=== PATIENT | female | born 1985 | race Hispanic/Latino ===

== ENCOUNTER 2022-02-08 06:19 | Day surgery (SDC) | payer OTHER ==
[~2022-02-08 06:19] MED LIST: LACTATED RINGERS 1,000 ML IV SCH; MIDAZOLAM 2 MG/2 ML INJ IV NR; SCOPOLAMINE TRANSDERMAL PATCH 72 HR TD NR
--- NOTE | 2022-02-08 07:37 | Anesthesia Consultation ---
Anesthesia Consult and Med Hx Date of service: 02/08/22 - Airway Anesthetic Teeth Evaluation: Poor (multiple chipped, missing teeth) ROM Head & Neck: Adequate Mental/Hyoid Distance: Adequate Mallampati Class: Class II Intubation Access Assessment: Probably Good - Pre-Operative Health Status ASA Pre-Surgery Classification: ASA3 Proposed Anesthetic Plan: General - Pulmonary Hx Asthma: Yes (daily inhaler and nubilizer) COPD: No Hx Pneumonia: Yes (2020) - Cardiovascular System Hx Hypertension: Yes (CONTROLLED WITH MEDICATION) - Central Nervous System Hx Seizures: Yes (LAST SEIZURE 2021) CVA: No (head trauma as child) Hx Back Pain: No (h/o broken bones from falls) Hx Psychiatric Problems: Yes (anxiety/depression) - Endocrine Hx Insulin Dependent Diabetes: Yes Hx Hyperthyroidism: Yes - Hematic Hx Sickle Cell Disease: No - Other Systems Hx Alcohol Use: No Hx Substance Use: No Hx Cancer: No Hx Obesity: Yes
--- NOTE | 2022-02-08 07:38 | Anesthesia Day of Surgery ---
Anesthesia Day of Surgery - Day of Surgery Patient Examined: Yes Patient H&P Reviewed: Yes Patient is NPO: Yes
[2022-02-08] MEDS ORDERED: HYDROmorphone 0.5 MG/0.5 ML INJ IV PRN (07:55)
[2022-02-08] MEDS ORDERED: ONDANSETRON 4 MG/2 ML INJ IV PRN ×2 (07:55→13:00)
[2022-02-08] MEDS ORDERED: HYDROcodone/ACETAMINOPHEN 5-325 MG TAB PO PRN ×2 (07:55→12:33)
[2022-02-08] MEDS ORDERED: FAMOTIDINE 20 MG/2 ML INJ IV NR (08:00)
[2022-02-08 08:47] LABS: Basophils % (Auto) 0.3 % (0.0-1.8); Eosinophils # (Auto) 0.1 K/mm3 (0.0-0.4); Eosinophils % (Auto) 0.9 % (0.0-4.3); Hematocrit 37.8 % (30.3-42.9); Hemoglobin 12.4 gm/dl (10.1-14.3); Lymphocytes # (Auto) 1.8 K/mm3 (1.2-5.4); Lymphocytes % (Auto) 14.3 % (13.4-35.0); Mean Corpuscular HGB Conc 33 % (30-34); Mean Corpuscular Volume 80 fl (79-97); Monocytes # (Auto) 0.4 K/mm3 (0.0-0.8); Monocytes % (Auto) 3.2 % (0.0-7.3); Platelet Count 315 K/mm3 (140-440); Red Blood Count 4.72 M/mm3 (3.65-5.03); Red Cell Distribution Width 14.5 % (13.2-15.2)
--- NOTE | 2022-02-08 09:10 | History and Physical Report ---
History of Present Illness Date of examination: 02/08/22 Date of admission: 02/08/2022 Chief complaint: History of abnormal uterine bleeding History of present illness: 36 yo female with a long-standing history of abnormal uterine bleeding requiring a blood transfusion in the past. Endometrial biospy was planned secondary to elevated risk factors for endometrial cancer however patient could not tolerate in office procedure. She continued to have AUB which did not resolve with medical management. Plans were therefore made for Hysteroscopy D&C. She was made aware of the risks and benefits of procedure and was in agreement with plan. Past History Past Medical History: asthma, hypertension, diabetes, seizure, high cholesterol Past Surgical History: D&C [employer] History: other (Abnormal uterine bleeding.) Family/Genetic History: none Social history: Medications and Allergies Allergies Allergy/AdvReac Type Severity Reaction Status Date / Time bee venom protein (honey bee) Allergy Swelling Verified 02/07/22 12:53 codeine Allergy Rash Verified 02/07/22 12:53 Penicillins Allergy Shortness Verified 02/07/22 12:53 of Breath HONEY Allergy Shortness Uncoded 02/07/22 12:51 of Breath NUTS Allergy Shortness Uncoded 02/07/22 12:53 of Breath Home Medications Medication Instructions Recorded Confirmed Last Taken Type ALBUTEROL NEB's [Proventil 0.083% 2.5 mg IH Q6H PRN 02/07/22 02/07/22 Unknown H istory NEBS] Albuterol Mdi (or & Nicu Only) 2 puff IH QID PRN 02/07/22 02/07/22 Unknown Hist ory [ProAir HFA Inhaler] Amlodipine Besylate [Norvasc] 10 mg PO QDAY 02/07/22 02/07/22 Unknown History Atorvastatin [Lipitor Tab] 80 mg PO QHS 02/07/22 02/07/22 Unknown History Insulin Degludec [Tresiba 20 unit SQ QPM 02/07/22 02/07/22 Unknown History Flextouch U-100] Levothyroxine Sodium [Euthyrox] 125 mcg PO QAM 02/07/22 02/07/22 Unknown History Metformin HCl [metFORMIN] 1,000 mg PO BID 02/07/22 02/07/22 Unknown History Phenytoin [Dilantin] 100 mg PO TID 02/07/22 02/07/22 Unknown History Active Meds: Active Medications Hydrocodone Bitart/Acetaminophen (Hydrocodone/Acetaminophen 5-325 Mg Tab) 2 each PO ONCE PRN PRN Reason: Pain, Moderate (4-6) Stop: 02/08/22 12:00 Famotidine (Famotidine 20 Mg/2 Ml Inj) 20 mg IV PREOP NR Stop: 02/08/22 12:00 Hydromorphone HCl (Hydromorphone 0.5 Mg/0.5 Ml Inj) 0.5 mg IV Q10MIN PRN PRN Reason: Pain , Severe (7-10) Stop: 02/08/22 20:00 Lactated Ringer's (Lactated Ringers) 1,000 mls @ 100 mls/hr IV DIRECT BENNY Stop: 02/08/22 23:59 Midazolam HCl (Midazolam 2 Mg/2 Ml Inj) 2 mg IV PREOP NR Stop: 02/08/22 23:59 Ondansetron HCl (Ondansetron 4 Mg/2 Ml Inj) 4 mg IV ONCE PRN PRN Reason: Nausea And Vomiting Stop: 02/08/22 10:00 Scopolamine (Scopolamine Transdermal Patch 72 Hr) 1 each TD PREOP NR Stop: 02/08/22 23:59 Review of Systems Constitutional: weight gain, daytime sleepiness Eyes: deferred Ears, nose, mouth and throat: deferred Breasts: normal Genitourinary: vaginal bleeding Rectal Exam: deferred, normal exam-external/orifice Integumentary: deferred Neurological: seizures Psychiatric: anxiety Endocrine: weight change Hematologic/Lymphatic: easy bleeding (Abnormal uterine bleeding) - Physical Exam Cardiovascular: Regular rate, Normal S1, Normal S2 Lungs: Positive: Clear to auscultation Abdomen: Positive: normal appearance, soft Genitourinary (Female): Positive: normal external genitalia, normal perenium Vulva: both: normal Vagina: Positive: normal moisture. Negative: discharge Anus/Rectum: Positive: normal perianal skin Extremities: Positive: normal Results Result Diagrams: 02/08/22 08:29 Abnormal lab results 02/08/22 02/08/22 Range/Units 08:18 08:29 WBC 12.7 H (4.5-11.0) K/mm3 MCH 26 L (28-32) pg Seg Neutrophils % 81.3 H (40.0-70.0) % Seg Neutrophils # 10.3 H (1.8-7.7) K/mm3 POC Glucose 158 H (70-105) mg/dL All other labs normal. Assessment and Plan - Patient Problems (1) Obesity Current Visit: Yes Status: Acute Qualifiers: Obesity type: due to excess calories (2) History of blood transfusion Current Visit: Yes Status: Acute Plan to address problem: Decrease risk of additional blood transfusions with D&C and medical management; determine if uterine pathology via hysteroscopy. (3) Other specified abnormal uterine and vaginal bleeding Current Visit: Yes Status: Acute Plan to address problem: D&C with pathology work up
[2022-02-08] MEDS ORDERED: LIDOCAINE MPF (2%) 20 MG/1 ML VIAL 5 ML ONE (09:44)
[2022-02-08] MEDS ORDERED: ONDANSETRON 4 MG/2 ML INJ ONE ×2 (09:44→11:52)
[2022-02-08] MEDS ORDERED: propofoL 200 MG/20 ML VIAL IV ONE (09:44)
[2022-02-08] MEDS ORDERED: fentaNYL 100 MCG/2 ML INJ ONE (09:45)
[2022-02-08] MEDS ORDERED: SODIUM CHLORIDE 0.9% IRRIG SOLN 3000 ML IR ONE (10:32)
--- NOTE | 2022-02-08 11:21 | Discharge Summary ---
Providers - Providers Date of Admission: 02/08/22 Date of discharge: 02/08/22 Attending physician: HANY JACQUES none Primary care physician: LY PEREZ [facility] Reason for admission: other Procedure: other (Hysteroscopy D&C) Procedure details: Hysteroscopy D&C Other procedures: other Condition at discharge: Good Disposition: 01 HOME / SELF CARE / HOMELESS - Discharge Diagnoses (1) Obesity Status: Acute Qualifiers: Obesity type: due to excess calories Obesity classification: adult class 3 (BMI >= 40) Serious obesity comorbidity presence: without serious comorbidity Body mass index: BMI 40.0-44.9 Qualified Code(s): E66.01 - Morbid (severe) obesity due to excess calories; Z68.41 - Body mass index [BMI] 40.0-44.9, adult Comment: Counseled regarding diet and exercise. Verbalized understanding (2) History of blood transfusion Status: Acute (3) Other specified abnormal uterine and vaginal bleeding Status: Acute (4) Status post hysteroscopy Status: Acute (5) Status post dilation and curettage Status: Acute Plan - Discharge Medications Prescriptions: Doxycycline Hyclate [Doxycycline Hyclate TAB] 100 mg PO Q12HR 5 Days #10 tab Ibuprofen [Motrin 800 MG tab] 800 mg PO Q8HR PRN #30 tablet PRN Reason: Pain, Moderate (4-6) HYDROcodone/APAP 5-325 [[place] 5-325 mg TAB] 1 each PO Q4HR PRN #20 tablet PRN Reason: Pain , Severe (7-10) - Provider Discharge Summary Activity: routine (No intercourse for 2 weeks), no sex for 6 weeks Diet: routine Instructions: routine Additional instructions: [] Smoking cessation referral if applicable(refer to patient education folder for contact #) [] Refer to [facility] Booklet Call your doctor immediately for: * Fever > 100.5 * Heavy vaginal bleeding ( >1 pad per hour) * Severe persistent headache * Shortness of breath * Reddened, hot, painful area to leg or breast * Drainage or odor from incision. * Keep incision clean and dry at all times and follow doctor's instructions regarding bathing/showering - Follow up plan Follow up: HANY JACQUES MD [Staff Physician] - 7 Days Forms: Work/School Excuse Out Patient, Outpatient Surgery DC Inst. Pending Studies Pathology report
[2022-02-08] MEDS ORDERED: fentaNYL 100 MCG/2 ML INJ IV PRN (11:47)
[2022-02-08] MEDS ORDERED: IBUPROFEN 600 MG TAB PO PRN (12:00)
--- NOTE | 2022-02-08 13:24 | Post Anesthesia Evaluation ---
- Post Anesthesia Evaluation Patient Participated: Yes Airway Patent: Yes Stable Respiratory Function: Yes Nausea/Vomiting: No Temp > 96.8F: Yes Pain Manageable: Yes Adequeate Hydration: Yes Anesthesia Complications: No
[2022-02-08 17:28] VITALS: BP 144/58
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
== END 2022-02-08 12:40 | disposition home or self-care (01) ==
LOC: OR 06:19
PROVIDERS: ATTEND Obstetrics & Gynecology
DX: N93.8 Other specified abnormal uterine and vaginal bleeding (principal); E66.9 Obesity, unspecified; I10 Essential (primary) hypertension; J45.909 Unspecified asthma, uncomplicated; M19.90 Unspecified osteoarthritis, unspecified site; E11.9 Type 2 diabetes mellitus without complications; E05.90 Thyrotoxicosis, unspecified without thyrotoxic crisis or storm; F32.9 Major depressive disorder, single episode, unspecified; F41.9 Anxiety disorder, unspecified; Z91.81 History of falling; Z88.8 Allergy status to other drugs, medicaments and biological substances; Z88.5 Allergy status to narcotic agent; Z88.0 Allergy status to penicillin; Z91.030 Bee allergy status; Z91.018 Allergy to other foods; Z79.899 Other long term (current) drug therapy; Z98.890 Other specified postprocedural states; Z68.41 Body mass index [BMI] 40.0-44.9, adult; Z87.01 Personal history of pneumonia (recurrent); Z90.49 Acquired absence of other specified parts of digestive tract; Z87.442 Personal history of urinary calculi; Z87.440 Personal history of urinary (tract) infections
CPT/HCPCS: 36415; 58558; 81025; 82962; 85025; 88305; J2250; J2405; J2704; J3010; J3490; J7120